=== PATIENT | female | born 1950 | race Caucasian/White ===

== ENCOUNTER 2018-04-01 08:11 | Inpatient (IN) ==
[2018-04-01 09:29] LABS: Basophils # 0.1 10*3/uL (0.0-0.2); Basophils % 0.2 % (0.0-0.8); Hematocrit 38.7 VOL% (35.7-47.0); Hemoglobin 12.9 GM/DL (12.0-16.0); Immature Granulocytes % 1.5 %; Immature Granulocytes Absolute 0.55 #; Lymphocytes # 4.6 10*3/uL (1.4-4.0); Lymphocytes % 12.4 % (21.3-54.2); Mean Corpuscular HGB Conc 33.3 GM/DL (32-36); Mean Corpuscular Hemoglobin 31 PG (27-34); Mean Corpuscular Volume 93.3 FL (87-102); Mean Platelet Volume 10.6 FL (9.6-12.0); Monocytes # 3.5 10*3/uL (0.11-0.8); Monocytes % 9.4 % (1.7-12.7); Neutrophils # 28.6 10*3/uL (1.4-7.4); Neutrophils % 76.5 % (38.7-73.9); Platelet Count 308 T/CUMM (130-400); Red Blood Count 4.15 MC/CUMM (3.8-5.5); Red Cell Distribution Width 14.1 % (9.3-17.3); White Blood Count 37.3 T/CUMM (4-12)
[2018-04-01 09:38] LABS: PT Patient Result 10.2 SECS; Partial Thromboplastin Time 22.8 SECS (0-40)
[2018-04-01 09:47] LABS: Albumin 3.8 G/DL (3.4-5.0); Bilirubin,Total 0.5 MG/DL (0.2-1.0); Calcium 8.8 MG/DL (8.5-10.1); Osmolality,Calculated 296.7 MOS/KG (273-304); Potassium 5.1 MMOL/L (3.5-5.1); Total Protein 7.8 G/DL (6.4-8.3)
[2018-04-01 09:48] LABS: RBC,Urine 87605 /HPF (0-4)
[2018-04-01] MEDS ORDERED: ONDANSETRON 4 MG/2 ML VIAL IV STA (09:49)
[2018-04-01] MEDS ORDERED: HYDROmorphone 2 MG/1 ML VIAL IV STA (09:49)
[2018-04-01 09:50] LABS: Apearance,Urine CLOUDY (Clear); Urine Color Red (Yellow); Urine Specific Gravity 1.005 (1.001-1.035)
[2018-04-01 09:51] LABS: Bilirubin,Urine Negative (Negative); Blood, Urine Large mg/dL (Negative); Glucose,Urine (UA) 150 mg/dL (Negative); Ketones,Urine Negative (Negative); Nitrite,Urine Negative (Negative); Protein,Urine >=500 MG/DL; Urine Urobilinogen 0.2 EU/DL (0.2-1.0)
[2018-04-01 10:08] LABS: Band Neutrophils 1 % (0-10); Lymphocytes 12 % (20-55); Segmented Neutrophils 79 % (50-85); Total Cells Counted 100
[2018-04-01 10:09] LABS: Hypochromasia Slight; Microcytosis Slight
[2018-04-01] MEDS ORDERED: ACETAMINOPHEN 325 MG TABLET PO PRN (11:46)
[2018-04-01] MEDS ORDERED: ONDANSETRON 4 MG/2 ML VIAL IV PRN (11:46)
[2018-04-01] MEDS ORDERED: INFLUENZA VIRUS VACCINE 0.5 ML SYRINGE IM ONE (12:14)
[2018-04-01] MEDS: MORPHINE 4 MG/1 ML VIAL IV PRN ×2 (14:54→17:05)
[2018-04-01] MEDS ORDERED: ZALEPLON 5 MG CAPSULE PO PRN (15:58)
[2018-04-01 17:07] LABS: Hematocrit 35.9 VOL% (35.7-47.0); Hemoglobin 11.9 GM/DL (12.0-16.0)
[2018-04-01] MEDS: SODIUM CHLORIDE 0.9% 1,000 ML IV SCH (17:08)
[2018-04-01] MEDS: CYCLOBENZAPRINE 10 MG TABLET PO PRN (20:46)
[2018-04-01] MEDS: GABAPENTIN 300 MG CAPSULE PO SCH (20:46)
[2018-04-01 22:53] LABS: Hematocrit 34.5 VOL% (35.7-47.0); Hemoglobin 11.3 GM/DL (12.0-16.0)
[2018-04-02] MEDS: MORPHINE 4 MG/1 ML VIAL IV PRN (02:09)
[2018-04-02] MEDS: SODIUM CHLORIDE 0.9% 1,000 ML IV SCH ×3 (02:10→21:02)
[2018-04-02] MEDS ORDERED: HYDROmorphone 2 MG/1 ML VIAL IV ONE (03:30)
[2018-04-02 05:21] LABS: Basophils % 0.1 % (0.0-0.8); Eosinophils # 0.1 10*3/uL (0.0-0.87); Eosinophils % 0.2 % (0.00-10.9); Hematocrit 33.4 VOL% (35.7-47.0); Hemoglobin 10.6 GM/DL (12.0-16.0); Immature Granulocytes % 0.9 %; Immature Granulocytes Absolute 0.25 #; Lymphocytes % 10.6 % (21.3-54.2); Mean Corpuscular HGB Conc 31.7 GM/DL (32-36); Mean Corpuscular Hemoglobin 31 PG (27-34); Mean Platelet Volume 10.7 FL (9.6-12.0); Monocytes # 2.4 10*3/uL (0.11-0.8); Monocytes % 8.6 % (1.7-12.7); Neutrophils # 22.4 10*3/uL (1.4-7.4); Neutrophils % 79.6 % (38.7-73.9); Platelet Count 220 T/CUMM (130-400); Red Blood Count 3.48 MC/CUMM (3.8-5.5); Red Cell Distribution Width 14.1 % (9.3-17.3); White Blood Count 28.1 T/CUMM (4-12)
[2018-04-02 05:35] LABS: Calcium 8.1 MG/DL (8.5-10.1); Osmolality,Calculated 299.8 MOS/KG (273-304); Potassium 5.6 MMOL/L (3.5-5.1)
[2018-04-02 06:11] LABS: Band Neutrophils 5 % (0-10); Lymphocytes 6 % (20-55); Segmented Neutrophils 87 % (50-85); Total Cells Counted 100
[2018-04-02 06:12] LABS: Anisocytosis 1+; Platelet Estimate Adequate
[2018-04-02] MEDS: HYDROmorphone 2 MG/1 ML VIAL IV PRN ×3 (08:52→23:43)
[2018-04-02] MEDS ORDERED: SPIRONOLACTONE 25 MG TABLET PO SCH (09:00)
[2018-04-02] MEDS ORDERED: LISINOPRIL 10 MG TABLET PO SCH (09:00)
[2018-04-02] MEDS: GABAPENTIN 300 MG CAPSULE PO SCH ×2 (09:57→21:01)
[2018-04-02] MEDS: DILTIAZEM CD 120 MG CAPSULE PO SCH (09:57)
[2018-04-02] MEDS: SERTRALINE 100 MG TABLET PO SCH (09:57)
[2018-04-02] MEDS: PANTOPRAZOLE 40 MG TABLET PO SCH (09:57)
[2018-04-02] MEDS: hydroCHLOROthiazide 25 MG TABLET PO SCH (10:02)
[2018-04-02] MEDS: ATENOLOL 25 MG TABLET PO SCH (10:04)
[2018-04-02] MEDS: LEVOTHYROXINE 25 MCG TABLET PO SCH (10:08)
[2018-04-02] MEDS: oxyCODONE IR 5 MG TABLET PO PRN ×2 (11:50→21:33)
[2018-04-02] MEDS: cefTRIAXone 1,000 MG in SYRINGE 1 EACH IV SCH (11:51)
[2018-04-02] MEDS: DIGOXIN 0.125 MG TABLET PO SCH (14:17)
[2018-04-02] MEDS: CYCLOBENZAPRINE 10 MG TABLET PO PRN (21:33)
[2018-04-03] MEDS: HYDROmorphone 2 MG/1 ML VIAL IV PRN ×5 (03:36→23:13)
[2018-04-03 06:33] LABS: Basophils % 0.1 % (0.0-0.8); Eosinophils # 0.2 10*3/uL (0.0-0.87); Eosinophils % 1.1 % (0.00-10.9); Hematocrit 23.4 VOL% (35.7-47.0); Hemoglobin 7.4 GM/DL (12.0-16.0); Immature Granulocytes % 0.7 %; Immature Granulocytes Absolute 0.11 #; Lymphocytes # 1.6 10*3/uL (1.4-4.0); Lymphocytes % 9.6 % (21.3-54.2); Mean Corpuscular HGB Conc 31.6 GM/DL (32-36); Mean Corpuscular Hemoglobin 31 PG (27-34); Mean Corpuscular Volume 97.1 FL (87-102); Mean Platelet Volume 11.1 FL (9.6-12.0); Monocytes % 6.2 % (1.7-12.7); Neutrophils # 13.4 10*3/uL (1.4-7.4); Neutrophils % 82.3 % (38.7-73.9); Platelet Count 131 T/CUMM (130-400); Red Blood Count 2.41 MC/CUMM (3.8-5.5); Red Cell Distribution Width 13.8 % (9.3-17.3); White Blood Count 16.3 T/CUMM (4-12)
[2018-04-03] MEDS: LEVOTHYROXINE 25 MCG TABLET PO SCH (06:58)
[2018-04-03 06:59] LABS: Calcium 8.4 MG/DL (8.5-10.1); Osmolality,Calculated 295.3 MOS/KG (273-304)
[2018-04-03] MEDS: SODIUM CHLORIDE 0.9% 1,000 ML IV SCH ×2 (07:01→23:02)
[2018-04-03] MEDS ORDERED: SODIUM POLYSTYRENE SULFATE 15 GM/60 ML BOTTLE PO ONE (07:33)
[2018-04-03] MEDS ORDERED: SODIUM CHLORIDE 0.9% 1,000 ML IV PRN (08:09)
[2018-04-03] MEDS: GABAPENTIN 300 MG CAPSULE PO SCH ×2 (08:43→21:03)
[2018-04-03] MEDS: PANTOPRAZOLE 40 MG TABLET PO SCH (08:43)
[2018-04-03] MEDS: ATENOLOL 25 MG TABLET PO SCH (08:43)
[2018-04-03] MEDS: CYCLOBENZAPRINE 10 MG TABLET PO PRN (08:44)
[2018-04-03] MEDS: oxyCODONE IR 5 MG TABLET PO PRN (08:44)
[2018-04-03] MEDS: DILTIAZEM CD 120 MG CAPSULE PO SCH (08:45)
[2018-04-03] MEDS: SERTRALINE 100 MG TABLET PO SCH (08:45)
[2018-04-03] MEDS: hydroCHLOROthiazide 25 MG TABLET PO SCH (08:48)
[2018-04-03] MEDS: DIGOXIN 0.125 MG TABLET PO SCH (13:54)
[2018-04-03] MEDS: ALBUTEROL/IPRATROPIUM 3 ML NEB RESP TX SCH ×2 (14:02→19:17)
[2018-04-03] MEDS: cefTRIAXone 1,000 MG in SYRINGE 1 EACH IV SCH (15:23)
[2018-04-03 19:35] LABS: Hematocrit 30.2 VOL% (35.7-47.0)
[2018-04-03] MEDS ORDERED: ZOLPIDEM 5 MG TABLET PO PRN (21:00)
[2018-04-04] MEDS: ALBUTEROL/IPRATROPIUM 3 ML NEB RESP TX SCH ×7 (00:11→23:00)
[2018-04-04] MEDS: HYDROmorphone 2 MG/1 ML VIAL IV PRN ×5 (03:40→19:23)
[2018-04-04] MEDS: LEVOTHYROXINE 25 MCG TABLET PO SCH (06:59)
[2018-04-04 07:55] LABS: Basophils % 0.1 % (0.0-0.8); Eosinophils # 0.1 10*3/uL (0.0-0.87); Eosinophils % 0.7 % (0.00-10.9); Hematocrit 28.9 VOL% (35.7-47.0); Hemoglobin 9.9 GM/DL (12.0-16.0); Immature Granulocytes % 0.9 %; Immature Granulocytes Absolute 0.15 #; Lymphocytes # 1.4 10*3/uL (1.4-4.0); Lymphocytes % 8.1 % (21.3-54.2); Mean Corpuscular HGB Conc 34.3 GM/DL (32-36); Mean Corpuscular Hemoglobin 30 PG (27-34); Mean Corpuscular Volume 88.4 FL (87-102); Mean Platelet Volume 10.7 FL (9.6-12.0); Neutrophils # 14.4 10*3/uL (1.4-7.4); Neutrophils % 84.2 % (38.7-73.9); Platelet Count 115 T/CUMM (130-400); Red Blood Count 3.27 MC/CUMM (3.8-5.5); Red Cell Distribution Width 15.5 % (9.3-17.3); White Blood Count 17.1 T/CUMM (4-12)
[2018-04-04] MEDS ORDERED: ZALEPLON 5 MG CAPSULE PO PRN (08:00)
[2018-04-04 08:09] LABS: Calcium 8.4 MG/DL (8.5-10.1); Osmolality,Calculated 283.3 MOS/KG (273-304); Potassium 4.1 MMOL/L (3.5-5.1)
[2018-04-04] MEDS: GABAPENTIN 300 MG CAPSULE PO SCH ×2 (09:15→21:12)
[2018-04-04] MEDS: DILTIAZEM CD 120 MG CAPSULE PO SCH (09:15)
[2018-04-04] MEDS: SERTRALINE 100 MG TABLET PO SCH (09:15)
[2018-04-04] MEDS: hydroCHLOROthiazide 25 MG TABLET PO SCH (09:15)
[2018-04-04] MEDS: PANTOPRAZOLE 40 MG TABLET PO SCH (09:18)
[2018-04-04] MEDS: ATENOLOL 25 MG TABLET PO SCH (09:18)
[2018-04-04] MEDS: SODIUM CHLORIDE 0.9% 1,000 ML IV SCH (10:57)
[2018-04-04] MEDS ORDERED: MAGNESIUM SULF RIDER 4 GM in PREMIX 1 EACH IV ONE (11:30)
[2018-04-04] MEDS: DIGOXIN 0.125 MG TABLET PO SCH (13:03)
[2018-04-04] MEDS: ERTAPENEM 1,000 MG in SODIUM CHLORIDE 0.9% 100 ML IV SCH (16:34)
[2018-04-05] MEDS: SODIUM CHLORIDE 0.9% 1,000 ML IV SCH ×2 (01:12→11:20)
[2018-04-05] MEDS: ALBUTEROL/IPRATROPIUM 3 ML NEB RESP TX SCH ×4 (03:00→14:10)
[2018-04-05] MEDS: HYDROmorphone 2 MG/1 ML VIAL IV PRN ×3 (04:30→10:49)
[2018-04-05 05:23] LABS: Basophils % 0.1 % (0.0-0.8); Eosinophils # 0.2 10*3/uL (0.0-0.87); Eosinophils % 1.5 % (0.00-10.9); Hematocrit 28.8 VOL% (35.7-47.0); Hemoglobin 9.5 GM/DL (12.0-16.0); Immature Granulocytes Absolute 0.15 #; Lymphocytes # 1.3 10*3/uL (1.4-4.0); Lymphocytes % 8.3 % (21.3-54.2); Mean Corpuscular Hemoglobin 30 PG (27-34); Mean Corpuscular Volume 89.4 FL (87-102); Mean Platelet Volume 11.1 FL (9.6-12.0); Monocytes % 6.7 % (1.7-12.7); Neutrophils # 12.6 10*3/uL (1.4-7.4); Neutrophils % 82.4 % (38.7-73.9); Platelet Count 141 T/CUMM (130-400); Red Blood Count 3.22 MC/CUMM (3.8-5.5); Red Cell Distribution Width 15.8 % (9.3-17.3); White Blood Count 15.3 T/CUMM (4-12)
[2018-04-05 05:50] LABS: Calcium 8.5 MG/DL (8.5-10.1); Osmolality,Calculated 276.7 MOS/KG (273-304); Potassium 3.9 MMOL/L (3.5-5.1)
[2018-04-05] MEDS: ATENOLOL 25 MG TABLET PO SCH (08:43)
[2018-04-05] MEDS: GABAPENTIN 300 MG CAPSULE PO SCH (08:44)
[2018-04-05] MEDS: PANTOPRAZOLE 40 MG TABLET PO SCH (08:45)
[2018-04-05] MEDS: DILTIAZEM CD 120 MG CAPSULE PO SCH (08:45)
[2018-04-05] MEDS: SERTRALINE 100 MG TABLET PO SCH (08:45)
[2018-04-05] MEDS: LEVOTHYROXINE 25 MCG TABLET PO SCH (08:45)
[2018-04-05] MEDS: hydroCHLOROthiazide 25 MG TABLET PO SCH (08:46)
[2018-04-05] MEDS: ERTAPENEM 1,000 MG in SODIUM CHLORIDE 0.9% 100 ML IV SCH (10:50)
[2018-04-05] MEDS: oxyCODONE IR 5 MG TABLET PO PRN (11:19)
[2018-04-05 11:53] VITALS: BP 119/66
[2018-04-05] MEDS: DIGOXIN 0.125 MG TABLET PO SCH (14:08)
== END 2018-04-05 15:07 | disposition home health service (06) | DRG 690 ==
LOC: N.ED 08:11 → N.EDINP 11:07 → N.2E 12:12
PROVIDERS: ADMIT Internal Medicine; ATTEND Internal Medicine